=== PATIENT | female | born 1950 | race Caucasian/White ===

== ENCOUNTER 2016-11-25 08:34 | Outpatient (CLI) | payer MEDICARE, MEDICAID | END 2016-11-25 23:59 | DX: R03.0 Elevated blood-pressure reading, without diagnosis of hypertension (principal); F41.8 Other specified anxiety disorders; Z13.220 Encounter for screening for lipoid disorders; Z68.1 Body mass index [BMI] 19.9 or less, adult ==

== ENCOUNTER 2016-12-09 07:26 | Outpatient (CLI) | payer MEDICARE, MEDICAID ==
[2016-12-09 19:51] LABS: FOLATE 14.64 ng/mL (5.90 - >24.8)
== END 2016-12-09 07:27 | disposition home or self-care (01) ==
LOC: LAB.S 07:26
PROVIDERS: ATTEND Nurse Practitioner Family
DX: R03.0 Elevated blood-pressure reading, without diagnosis of hypertension (principal); Z68.1 Body mass index [BMI] 19.9 or less, adult; D75.89 Other specified diseases of blood and blood-forming organs; F41.8 Other specified anxiety disorders
CPT/HCPCS: 36415; 82607; 82746; 82977

== ENCOUNTER 2017-01-27 11:24 | Outpatient (CLI) | payer MEDICARE, MEDICAID | END 2017-01-27 11:25 | disposition home or self-care (01) | DX: D75.89 Other specified diseases of blood and blood-forming organs (principal) ==

== ENCOUNTER 2018-08-12 09:40 | Outpatient (CLI) | payer MEDICARE, MEDICAID | END 2018-08-12 09:41 | disposition home or self-care (01) | LOC: RT.S 09:40 | PROVIDERS: ATTEND Nurse Practitioner Family | DX: I49.9 Cardiac arrhythmia, unspecified (principal) | CPT/HCPCS: 93005 ==

== ENCOUNTER 2022-09-03 17:35 | Emergency (ER) | payer MEDICARE, MEDICAID ==
[2022-09-03] MEDS ORDERED: VANCOMYCIN INJ 1.25 GM in SODIUM CHLORIDE 0.9% 250 ML IV STA (18:58)
[2022-09-03] MEDS ORDERED: SODIUM CHLORIDE 0.9% 1,000 ML IV STA (18:59)
[2022-09-03 19:26] LABS: EOSINOPHILS # (AUTO) 0.1 10^3/uL (0.0-0.7); EOSINOPHILS % (AUTO) 0.8 %; MONOCYTES % (AUTO) 11.6 %
[2022-09-03 19:30] LABS: BASOPHILS # (AUTO) 0.1 10^3/uL (0.0-0.1); BASOPHILS % (AUTO) 0.6 %; HCT - HEMATOCRIT 42.6 % (37.0-47.0); HGB - HEMOGLOBIN 13.4 g/dL (12.0-16.0); LYMPHOCYTES # (AUTO) 1.9 10^3/uL (1.5-3.5); LYMPHOCYTES % (AUTO) 18.5 %; MEAN CORPUSCULAR HEMOGLOBIN 29.6 pg (27.0-31.0); MEAN CORPUSCULAR HGB CONC 31.5 g/dL (32.0-36.0); MEAN CORPUSCULAR VOLUME 94.2 fL (81.0-99.0); MEAN PLATELET VOLUME 12.7 fL (7.9-10.8); MONOCYTES # (AUTO) 1.2 10^3/uL (0.0-1.0); NEUTROPHILS # (AUTO) 6.8 10^3/uL (1.5-6.6); NEUTROPHILS % (AUTO) 68.2 %; PLT - PLATELET COUNT 166 10^3/uL (130-450); RED BLOOD COUNT 4.52 10^6/uL (4.20-5.40); RED CELL DISTRIBUTION WIDTH 15.4 % (12.0-15.0)
[2022-09-03 19:32] LABS: ALBUMIN 3.9 g/dL (3.2-5.5); ALBUMIN/GLOBULIN RATIO 1.3 (1.0-2.2); ALKALINE PHOSPHATASE 66 IU/L (42-121); ALT ALANINE AMINOTRANSFERASE < 10 IU/L (10-60); AST ASPARTATE AMINOTRANSFERASE 13 IU/L (10-42); BILIRUBIN,TOTAL 0.6 mg/dL (0.2-1.0); BUN - BLOOD UREA NITROGEN 11 mg/dL (6-20); CALCIUM 8.9 mg/dL (8.5-10.3); CARBON DIOXIDE - CO2 24 mmol/L (21-32); CHLORIDE 101 mmol/L (101-111); CREATININE 0.7 mg/dL (0.4-1.0); GFR - MDRD 82 (>89); GLUCOSE 121 mg/dL (70-100); LIPASE 28 U/L (22-51); POTASSIUM 4.1 mmol/L (3.5-5.0); SODIUM 134 mmol/L (135-145); TOTAL PROTEIN 6.9 g/dL (6.7-8.2)
--- NOTE | 2022-09-03 20:47 | ED Physician Documentation ---
PD HPI UPPER EXT INJURY - Stated complaint Stated Complaint: SWOLLEN HAND, PAIN - Chief complaint Chief Complaint: Ext Problem - History obtained from History obtained from: Patient - Additonal information Additional information: The patient comes to the emergency department chief complaint of right hand swelling with pain going up to her elbow since cutting herself with an X-Acto knife several days ago. The patient did not seek medical attention for the laceration, which was at the radial edge of her thenar eminence on the right. Her daughter Steri-Stripped the wound after washing it and the patient seemed to be doing fine until yesterday, she began to notice some swelling, pain, and redness of her hands. She was seen in clinic and was started on Keflex. She states she took 2 doses of Keflex yesterday and another 2 today. Her daughter states when she came home, she found the patient's found to be much more swollen than it had been before and noticed a red streak going up the arm. The patient denies fevers or chills. She does not feel ill in any other way. No other complaints at this time. She does note that the X-Acto knife was brand-new and had not been used to cut organic matter. PD PAST MEDICAL HISTORY - Past Medical History Past Medical History: Yes Cardiovascular: Murmur Musculoskeletal: Other - Past Surgical History General: Appendectomy - Present Medications Home Medications: Ambulatory Orders Medication Instructions Recorded Confirmed Sulfamethox/Trimeth 800/160 1 each PO BID #14 tablet 09/03/22 [Bactrim Ds 800/160] - Allergies Allergies/Adverse Reactions: Allergies Allergy/AdvReac Type Severity Reaction Status Date / Time Penicillins Allergy Unknown Verified 09/03/22 17:56 - Social History Does the pt smoke?: No Smoking Status: Never smoker Does the pt drink ETOH?: No Does the pt have substance abuse?: No - Immunizations Immunizations are current?: Yes - POLST Patient has POLST: No PD ED PE NORMAL - Vitals Vital signs reviewed: Yes - General General: Alert and oriented X 3, No acute distress, Well developed/nourished - HEENT HEENT: Atraumatic, PERRL, EOMI, Moist mucous membranes - Neck Neck: Supple, no meningeal sign - Respiratory Respiratory: No respiratory distress - Derm Derm: Warm and dry, Other (Mild erythema of the hand with notable edema. No induration or distinct mass/fluid collection. Erythematous streak ascending to elbow with erythematous patch over olecranon area.) - Extremities Extremities: No deformity, Other (Edema, moderate, of right hand as above) - Neuro Neuro: Alert and oriented X 3 - Psych Psych: Normal mood, Normal affect Results - Vitals Vitals: Vital Signs - 24 hr 09/03/22 09/03/22 17:51 21:07 Temperature 36.8 C 36.9 C Heart Rate 77 80 Respiratory 18 16 Rate Blood Pressure 143/83 H 145/85 H O2 Saturation 99 98 Oxygen O2 Source Room air - Labs Labs: Laboratory Tests 09/03/22 09/03/22 19:11 19:11 WBC 10.0 RBC 4.52 Hgb 13.4 Hct 42.6 MCV 94.2 MCH 29.6 MCHC 31.5 L RDW 15.4 H Plt Count 166 MPV 12.7 H Neut # (Auto) 6.8 H Lymph # (Auto) 1.9 [place] # (Auto) 1.2 H Eos # (Auto) 0.1 Baso # (Auto) 0.1 Absolute Nucleated RBC 0.00 Nucleated RBC % 0.0 Sodium 134 L Potassium 4.1 Chloride 101 Carbon Dioxide 24 Anion Gap 9.0 BUN 11 Creatinine 0.7 Estimated GFR (MDRD) 82 L Glucose 121 H Calcium 8.9 Total Bilirubin 0.6 AST 13 ALT < 10 L Alkaline Phosphatase 66 Total Protein 6.9 Albumin 3.9 Globulin 3.0 Albumin/Globulin Ratio 1.3 Lipase 28 PD Medical Decision Making - ED course Complexity details: reviewed results, re-evaluated patient, considered differential, d/w patient, d/w family ED course: The patient was well-appearing overall, and had not been on very antibiotics very long and I discussed with her and her family that she most likely has not had enough time on antibiotics for things to begin to turn around. However, given the location on the hand and the ascent of infection, I did go ahead and give the patient a dose of vancomycin IV. I also obtained a CBC and blood cultures to establish a baseline for the patient. I reviewed her CBC, which showed a normal white blood cell count. I had obtained an ER abdominal panel which was unremarkable by my review. The patient was advised to continue taking her Keflex and we will add Bactrim as well. I have discussed with the patient and her daughter that most likely, this infection will turn around with enough time on antibiotics, but that they should have a low threshold for return, should they notice rapid or concerning worsening of the symptoms over the next couple of days. They should also return if the patient develops a fever or feels generally ill. Departure - Departure Disposition: 01 Home, Self Care Clinical Impression: Cellulitis of hand Condition: Stable Instructions: ED Infec Skin Cellulitis Prescriptions: Sulfamethox/Trimeth 800/160 [Bactrim Ds 800/160] 1 each PO BID #14 tablet Comments: You have recently been started on antibiotics for your hand cellulitis and most likely, you have not been on them long enough to really turn the process around. However, and because of the swelling in your hand and the progression of redness, we have given you a dose of IV antibiotics here and will add a second antibiotic to augment the first. You should continue the antibiotic you were started on yesterday and pick the other course of antibiotics at the [facility] here in [place] tomorrow morning. Please take both antibiotics, as directed, until the courses are complete. If over the next couple of days you feel like things are still getting worse, then please come into the emergency department for reevaluation.
[2022-09-03 21:08] VITALS: BP 145/85
== END 2022-09-03 21:33 | disposition home or self-care (01) ==
LOC: ED 17:35
DX: L03.113 Cellulitis of right upper limb (principal)
CPT/HCPCS: 36415; 80053; 83690; 85025; 87040; 96365; 96366; 99283; 99284; J3370